=== PATIENT | male | born 1975 | race Two or more races ===

== ENCOUNTER 2023-08-24 20:17 | Emergency (ER) | payer OTHER ==
[~2023-08-24] VITALS: Ht 188 cm; Wt 97.7 kg
[2023-08-24 22:12] VITALS: BP 105/60; PULSE 70; RESP 17; TEMP 98.2
[2023-08-24] MEDS ORDERED: IBUPROFEN 800 MG TABLET PO ONE (22:30)
[2023-08-25] MEDS ORDERED: IBUP-1493 PO (00:27)
== END 2023-08-25 00:44 | disposition home or self-care (01) ==
LOC: EMS 20:18
DX: S50.02XA Contusion of left elbow, initial encounter (principal); V89.2XXA Person injured in unspecified motor-vehicle accident, traffic, initial encounter; Y93.89 Activity, other specified; Y92.89 Other specified places as the place of occurrence of the external cause; Y99.8 Other external cause status
CPT/HCPCS: 99284